=== PATIENT | female | born 1985 | race Caucasian/White ===

== ENCOUNTER 2018-11-04 20:42 | Emergency (ER) | payer BC ==
[2018-11-04 21:39] LABS: Urine Bacteria <20 /HPF (<20); Urine Culture Reflex Order NOT NEEDED; Urine Mucus 2+ /HPF (NONE SEEN)
[2018-11-04 21:40] LABS: Urine Blood 2+ (NEG); Urine Glucose NEGATIVE (NEG); Urine Protein 2+ (NEG)
[2018-11-04] MEDS ORDERED: NA CHLORIDE 0.9% 1,000 ML ONE (21:41)
[2018-11-04] MEDS ORDERED: KETOROLAC 30 MG/ML INJ ONE (21:41)
[2018-11-04 21:49] LABS: Basophils % 0.5 % (0-1.3); Eosinophils % 0.4 % (0-4.4)
[2018-11-04] MEDS ORDERED: ONDANSETRON 4 MG/2 ML VIAL ONE (21:52)
[2018-11-04 21:59] LABS: Absolute Lymphocytes (CBC) 1.1 K/uL (0.7-4.9); Absolute Monocytes 0.7 K/uL (0.1-1.3); Absolute Neutrophil 10.3 K/uL (1.8-8.0); Hematocrit 40.3 % (36.0-45.0); Lymphocytes % 8.8 % (15.3-44.8); MPV 7.2 fL (7.6-11.3); Monocytes % 5.5 % (3.3-12.3); RBC Red Blood Cell Count 4.75 M/uL (3.86-4.86)
[2018-11-04 22:02] LABS: Albumin 3.7 g/dL (3.4-5.0); Bilirubin Direct 0.1 mg/dL (0-0.2); Bilirubin Total 0.6 mg/dL (0.2-1.0); Potassium 3.7 mmol/L (3.5-5.1); Protein, Total 7.4 g/dL (6.4-8.2)
[2018-11-04] MEDS ORDERED: FENTANYL CITR 100 MCG/2 ML ONE (23:23)
--- NOTE | 2018-11-05 00:38 | EDPHYS ---
Physician Documentation [facility] Name: Corazon Gan Age: 32 yrs Sex: Female : 1985 Arrival Date: 11/04/2018 Time: 20:45 Bed 7 Private MD: Cesar Gomez E ED Physician Ridge Araujo HPI: 11/05 00:37 This 32 yrs old Female presents to ER via Ambulatory with complaints of Flank snw Pain, Fever. 00:37 The patient complains of pain in the right mid back. The pain does not radiate. Onset: snw The symptoms/episode began/occurred suddenly, 2 day(s) ago, and became persistent. Modifying factors: The symptoms are alleviated by nothing. Associated signs and symptoms: Pertinent positives: dysuria, nausea, chills. Severity of pain: At its worst the pain was moderate severe. The patient has experienced similar episodes in the past, a few times. The patient has not recently seen a physician. 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 - Social history:: Smoking status: Patient uses tobacco products, smokes one-half pack cigarettes per day. - Ebola Screening: : No symptoms or risks identified at this time. ROS: 11/05 00:38 Eyes: Negative for injury, pain, redness, and discharge, ENT: Negative for injury, snw pain, and discharge, Neck: Negative for injury, pain, and swelling, Cardiovascular: Negative for chest pain, palpitations, and edema, Respiratory: Negative for shortness of breath, cough, wheezing, and pleuritic chest pain, Abdomen/GI: Negative for abdominal pain, nausea, vomiting, diarrhea, and constipation. MS/Extremity: Negative for injury and deformity, Skin: Negative for injury, rash, and discoloration, Neuro: Negative for headache, weakness, numbness, tingling, and seizure. Constitutional: Positive for body aches, fatigue, fever, malaise. Back: Positive for flank pain, on the right. : Positive for urinary symptoms, burning with urination. Exam: 00:39 Head/Face: Normocephalic, atraumatic. Eyes: Pupils equal round and reactive to light, snw extra-ocular motions intact. Lids and lashes normal. Conjunctiva and sclera are non-icteric and not injected. Cornea within normal limits. Periorbital areas with no swelling, redness, or edema. ENT: Nares patent. No nasal discharge, no septal abnormalities noted. Tympanic membranes are normal and external auditory canals are clear. Oropharynx with no redness, swelling, or masses, exudates, or evidence of obstruction, uvula midline. Mucous membranes moist. Neck: Trachea midline, no thyromegaly or masses palpated, and no cervical lymphadenopathy. Supple, full range of motion without nuchal rigidity, or vertebral point tenderness. No Meningismus. Chest/axilla: Normal chest wall appearance and motion. Nontender with no deformity. No lesions are appreciated. Cardiovascular: Regular rate and rhythm with a normal S1 and S2. No gallops, murmurs, or rubs. Normal PMI, no JVD. No pulse deficits. Respiratory: Lungs have equal breath sounds bilaterally, clear to auscultation and percussion. No rales, rhonchi or wheezes noted. No increased work of breathing, no retractions or nasal flaring. 00:39 Back: No spinal tenderness. No costovertebral tenderness. Full range of motion. Skin: Warm, dry with normal turgor. Normal color with no rashes, no lesions, and no evidence of cellulitis. MS/ Extremity: Pulses equal, no cyanosis. Neurovascular intact. Full, normal range of motion. Neuro: Awake and alert, GCS 15, oriented to person, place, time, and situation. Cranial nerves II-XII grossly intact. Motor strength 5/5 in all extremities. Sensory grossly intact. Cerebellar exam normal. Normal gait. 00:39 Constitutional: The patient appears alert, awake, obese, uncomfortable. 00:39 Abdomen/GI: Inspection: obese Bowel sounds: normal, Palpation: mild abdominal tenderness, moderate abdominal tenderness, in the suprapubic area, right lower quadrant and left lower quadrant. Vital Signs: 11/04 21:06 BP 141 / 89; Pulse 92; Resp 18; Temp 99.3(O); Pulse Ox 96% on R/A; Weight 136.08 kg; lp1 Height 5 ft. 8 in. (172.72 cm); Pain 8/10; 22:12 BP 116 / 69; Pulse 84; Resp 18; Pulse Ox 95% on R/A; aa1 23:15 BP 117 / 64; Pulse 84; Resp 18; Pulse Ox 95% on R/A; Pain 7/10; aa1 11/05 00:36 BP 119 / 84; Pulse 86; Resp 18; Temp 99.0; Pulse Ox 95% on R/A; Pain 5/10; aa1 11/04 21:06 Body Mass Index 45.61 (136.08 kg, 172.72 cm) lp1 MDM: 11/04 21:18 Patient medically screened. snw 11/05 00:36 Data reviewed: vital signs, nurses notes. Data interpreted: Pulse oximetry: on room air snw is 95 %. Interpretation: acceptable. Counseling: I had a detailed discussion with the patient and/or guardian regarding: the historical points, exam findings, and any diagnostic results supporting the discharge/admit diagnosis, lab results, radiology results, the need for outpatient follow up, to return to the emergency department if symptoms worsen or persist or if there are any questions or concerns that arise at home. Special discussion: I discussed with the patient the need to follow-up with the PCP/specialist for the noted incidental finding on X-ray/CT scanning. Based on the history and exam findings, there is no indication for further emergent testing or inpatient evaluation. I discussed with the patient/guardian the need to see the primary care provider for further evaluation of the symptoms. 00:40 Response to treatment: the patient's symptoms have mildly improved after treatment, the snw patient's symptoms have markedly improved after treatment, and as a result, I will discharge patient, administer antibiotics Macrobid, administer pain medication. 11/04 21:15 Order name: Basic Metabolic Panel; Complete Time: 22:07 snw 11/04 21:15 Order name: CBC with Diff; Complete Time: 22:07 w 11/04 21:15 Order name: Hepatic Function; Complete Time: 22:07 w 11/04 21:15 Order name: Urine Culture 11/04 21:15 Order name: Urine Microscopic Only; Complete Time: 21:43 w 11/04 21:15 Order name: Blood Culture Adult (2) w 11/04 21:20 Order name: Urine Dipstick--Ancillary (enter results); Complete Time: :43 11/04 21:20 Order name: Urine --Ancillary (enter results); Complete Time: :43 11/04 23:08 Order name: CT Stone Protocol w 11/04 21:15 Order name: IV Saline Lock; Complete Time: :41 w 11/04 21:15 Order name: Labs collected and sent; Complete Time: :41 11/04 21:15 Order name: Urine Test (obtain specimen); Complete Time: 21:24 w 11/04 21:15 Order name: Urine Dipstick-Ancillary (obtain specimen); Complete Time: 21:24 snw Administered Medications: 11/04 21:43 Drug: NS 0.9% 1000 ml Route: IV; Rate: 1 bolus; Site: left antecubital; aa1 21:43 Drug: TORadol 30 mg Route: IVP; Site: left antecubital; aa1 22:45 Follow up: Response: No adverse reaction; Pain is unchanged, physician notified aa1 21:45 Drug: Zofran 4 mg Route: IVP; Site: left antecubital; aa1 22:45 Follow up: Response: No adverse reaction; Nausea is decreased aa1 23:15 Drug: fentaNYL (PF) 25 mcg Route: IVP; Site: left antecubital; aa11/05 00:34 Follow up: Response: No adverse reaction; Pain is decreased aa1 00:31 Drug: Rocephin 1 grams Route: IV; Rate: calculated rate; Site: left antecubital; aa1 00:40 Follow up: IV Status: Completed infusion aa1 00:31 Drug: Motrin 400 mg Route: PO; aa1 00:40 Follow up: Response: Medication administered at discharge. aa1 Disposition: : Co-signature as Attending Physician, Ridge Araujo MD. rn Disposition: 11/05/18 00:35 Discharged to Home. Impression: Urinary tract infection, site not specified. - Condition is Stable. - Discharge Instructions: Urinary Tract Infection, Adult, Rehydration, Adult. - Prescriptions for Macrobid 100 mg Oral Capsule - take 1 capsule by ORAL route every 12 hours for 10 days; 20 capsule. Diclofenac Sodium 75 mg Oral Tablet Sustained Release - take 1 tablet by ORAL route 2 times per day; 30 tablet. - Work release form, Medication Reconciliation Form, Thank You Letter, Antibiotic Education, Prescription Opioid Use form. - Follow up: Cesar Gomez MD; When: 2 - 3 days; Reason: Recheck today's complaints, Continuance of care, Re-evaluation by your physician. Follow up: Emergency Department; When: As needed; Reason: Worsening of condition. - Notes: Adrenal adenoma needs further evaluation. Signatures: Dispatcher [employer] EDMS Juliette Maurer RN RN aa1 Carole Santiago, CINEMA OR THEATRE MANAGER-C CINEMA OR THEATRE MANAGER-Csnw Ridge Araujo MD MD rn Pena, Laura, RN RN lp1 Corrections: (The following items were deleted from the chart) 00:47 00:35 11/05/2018 00:35 Discharged to Home. Impression: Urinary tract infection, site aa1 not specified. Condition is Stable. Forms are Medication Reconciliation Form, Thank You Letter, Antibiotic Education, Prescription Opioid Use. Follow up: Cesar Gomez; When: 2 - 3 days; Reason: Recheck today's complaints, Continuance of care, Re-evaluation by your physician. Follow up: Emergency Department; When: As needed; Reason: Worsening of condition. snw
--- NOTE | 2018-11-05 00:38 | ER ---
Nurse's Notes [facility] Name: Corazon Gan Age: 32 yrs Sex: Female : 1985 Arrival Date: 11/04/2018 Time: 20:45 Bed 7 Private MD: Cesar Gomez E Diagnosis: Urinary tract infection, site not specified Presentation: 11/04 21:02 Presenting complaint: Patient states: Fever, pain to right flank, pain when urinating lp1 that began yesterday, worsening; Fever of 102.5 an hour ago; Hx of kidney infection, symptoms similar. Transition of care: patient was not received from another setting of care. Onset of symptoms was November 04, 2018. Risk Assessment: Do you want to hurt yourself or someone else? Patient reports no desire to harm self or others. Initial Sepsis Screen: Does the patient meet any 2 criteria? No. Patient's initial sepsis screen is negative. Does the patient have a suspected source of infection? No. Patient's initial sepsis screen is negative. Care prior to arrival: None. 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 - Social history:: Smoking status: Patient uses tobacco products, smokes one-half pack cigarettes per day. - Ebola Screening: : No symptoms or risks identified at this time. Screenin:30 Abuse screen: Denies threats or abuse. Denies injuries from another. Nutritional aa1 screening: No deficits noted. Tuberculosis screening: No symptoms or risk factors identified. Fall Risk None identified. Assessment: 21:30 General: Appears in no apparent distress. uncomfortable, Behavior is calm, cooperative, aa1 appropriate for age. Pain: Complains of pain in posterior aspect of right lateral abdomen and anterior aspect of right lateral abdomen Pain currently is 8 out of 10 on a pain scale. Is continuous. Neuro: Level of Consciousness is awake, alert, obeys commands, Oriented to person, place, time, situation, Moves all extremities. Full function Gait is steady, Speech is normal. Respiratory: Airway is patent Respiratory effort is even, unlabored, Respiratory pattern is regular, symmetrical. GI: Abdomen is obese, Abd is soft X 4 quads Reports nausea, vomiting. : Reports pain in right flank(s). EENT: No signs and/or symptoms were reported regarding the EENT system. Derm: Skin is intact, is healthy with good turgor, Skin is pink, warm \T\ dry. Musculoskeletal: Circulation, motion, and sensation intact. Capillary refill < 3 seconds, Range of motion: intact in all extremities. 22:14 Reassessment: Patient appears in no apparent distress at this time. Patient and/or aa1 family updated on plan of care and expected duration. Pain level reassessed. Patient is alert, oriented x 3, equal unlabored respirations, skin warm/dry/pink. Awaiting provider reassessment. 23:15 Reassessment: Patient appears in no apparent distress at this time. Patient and/or aa1 family updated on plan of care and expected duration. Pain level reassessed. Patient is alert, oriented x 3, equal unlabored respirations, skin warm/dry/pink. Pt remedicated for pain and taken to CT at this time. 11/05 00:36 Reassessment: Patient appears in no apparent distress at this time. Patient is alert, aa1 oriented x 3, equal unlabored respirations, skin warm/dry/pink. Discussed d/c \T\ f/u instructions with pt \T\ family; denies questions or concerns at this time Patient states feeling better. Vital Signs: 11/04 21:06 BP 141 / 89; Pulse 92; Resp 18; Temp 99.3(O); Pulse Ox 96% on R/A; Weight 136.08 kg; lp1 Height 5 ft. 8 in. (172.72 cm); Pain 8/10; 22:12 BP 116 / 69; Pulse 84; Resp 18; Pulse Ox 95% on R/A; aa1 23:15 BP 117 / 64; Pulse 84; Resp 18; Pulse Ox 95% on R/A; Pain 7/10; aa1 11/05 00:36 BP 119 / 84; Pulse 86; Resp 18; Temp 99.0; Pulse Ox 95% on R/A; Pain 5/10; aa1 11/04 21:06 Body Mass Index 45.61 (136.08 kg, 172.72 cm) lp1 ED Course: 11/04 20:45 Patient arrived in ED. es 20:45 Cesar Gomez MD is Private Physician. es 21:03 Triage completed. lp1 21:05 Arm band placed on left wrist. lp1 21:13 Carole Santiago F[facility]-C [facility]. snw 21:13 Ridge Araujo MD is Attending Physician. snw 21:24 Juliette Maurer RN is Primary Nurse. aa1 21:30 Patient has correct armband on for positive identification. Bed in low position. Call aa1 light in reach. Pulse ox on. NIBP on. Warm blanket given. 21:35 Inserted saline lock: 20 gauge in left antecubital area, using aseptic technique. Blood mw2 collected. 23:[address] via wheelchair. kw1 23:26 CT completed. Patient tolerated procedure well. Patient moved back from [place]. kw1 23:43 CT Stone Protocol In Process Unspecified. EDMS 11/05 00:34 Cesar Gomez MD is Referral Physician. snw 00:45 No provider procedures requiring assistance completed. IV discontinued, intact, aa1 bleeding controlled, No redness/swelling at site. Pressure dressing applied. Administered Medications: 11/04 21:43 Drug: NS 0.9% 1000 ml Route: IV; Rate: 1 bolus; Site: left antecubital; aa1 21:43 Drug: TORadol 30 mg Route: IVP; Site: left antecubital; aa1 22:45 Follow up: Response: No adverse reaction; Pain is unchanged, physician notified aa1 21:45 Drug: Zofran 4 mg Route: IVP; Site: left antecubital; aa1 22:45 Follow up: Response: No adverse reaction; Nausea is decreased aa1 23:15 Drug: fentaNYL (PF) 25 mcg Route: IVP; Site: left antecubital; aa1 11/05 00:34 Follow up: Response: No adverse reaction; Pain is decreased aa 00:31 Drug: Rocephin 1 grams Route: IV; Rate: calculated rate; Site: left antecubital; aa 00:40 Follow up: IV Status: Completed infusion aa 00:31 Drug: Motrin 400 mg Route: PO; aa 00:40 Follow up: Response: Medication administered at discharge. aa1 Outcome: 00:35 Discharge ordered by . snw 00:45 Discharged to home ambulatory, with family. aa1 00:45 Condition: good 00:45 Discharge instructions given to patient, family, Instructed on discharge instructions, follow up and referral plans. medication usage, Demonstrated understanding of instructions, follow-up care, medications, Prescriptions given X 2. 00:47 Patient left the ED. aa1 Addendum: 11/08/2018 10:09 Addendum: Culture Results: Positive urine culture. No further action required. Bacteria h b sensitive to prescribed antibiotic. Signatures: Dispatcher [employer] Juliette Garcia RN RN aa1 Carole Santiago, SECRETARY RECEPTIONIST-C SECRETARY RECEPTIONIST-Rowanw Olga Lovell Laura, RN RN lp1 Vilma Kahn RN RN Enedelia Loera1 Gaurav Hurtado 2
[2018-11-05] MEDS ORDERED: CEFTRIAXONE/SWI 1gm 1 GM/10 ML SYR ONE (00:41)
[2018-11-05] MEDS ORDERED: IBUPROFEN 200 MG TAB PO ONE (00:41)
[2018-11-05 02:32] VITALS: O2SAT 95
[2018-11-05 02:35] VITALS: BP 119/84; TEMP 99
--- NOTE | 2018-11-05 18:07 | RAD REPORT ---
EXAM DESCRIPTION: CT - Stone Protocol CLINICAL HISTORY: The patient is 32 years old and is Female; FLANK PAIN COMPARISON: None. TECHNIQUE: Axial computed tomography images of the abdomen and pelvis without intravenous contrast. Sagittal and coronal reformatted images were created and reviewed. This CT exam was performed using one or more o f the following dose reduction techniques: Automated exposure control, adjustment of the mA and/or kV according to patient size, and/or use of iterative reconstruction technique. FINDINGS: LUNG BASES: Lung bases are clear. ABDOMEN: LIVER: Unremarkable. GALLBLADDER AND BILE DUCTS: Prior cholecystectomy. No ductal dilation. PANCREAS: Unremarkable. No ductal dilation. SPLEEN: Unremarkable. No splenomegaly. ADRENALS: Well-demarcated 3.6 x 3.3 cm hypodense left adrenal nodule is present with punctate calcifi cation superiorly. KIDNEYS AND URETERS: 5 mm cortical calcification in the right kidney laterally. No hydronephrosis. STOMACH AND BOWEL: Unremarkable. No obstruction. No mucosal thickening. PELVIS: APPENDIX: The appendix is surgically absent. BLADDER: Unremarkable. No stones. REPRODUCTIVE: Anteverted heterogenous uterus with suggestion of left adnexal cystic changes measuring up to 4.0 cm. Similar appearing finding is seen in the right adnexa measuring 3.0 x 2.9 cm. Small am ount of gas in the vaginal canal. ABDOMEN and PELVIS: INTRAPERITONEAL SPACE: Unremarkable. No free air. No significant fluid collection. BONE/JOINTS: No acute fracture. No dislocation. SOFT TISSUES: Unremarkable. VASCULATURE: Unremarkable. No abdominal aortic aneurysm. LYMPH NODES: Unremarkable. No enlarged lymph nodes. IMPRESSION: 1. No acute abdominal or pelvic abnormality. 2. Hypodense well-demarcated 3.6 cm left adrenal nodule, likely adenoma. Dedicated CT or MR abdomen w ith and without contrast. Adrenal mass protocol may be of use for further characterization. 3.5 mm right renal cortical calcification. No hydronephrosis. 4. Prior cholecystectomy and appendectomy. 4. Heterogenous anteverted uterus with bilateral adnexal cystic changes. Recommend follow-up pelvic U S in 6-12 weeks Reference: J Am Mary Radiol 2013;10:[id number]. Electronically signed by Lenny Okeefe DO 11/04/2018 11:52 PM SERVICE WRITER Due to temporary technical issues with the PACS/Fluency reporting system, reports are being signed by the in house radiologist as a courtesy to ensure prompt reporting. The interpreting radiologist is f ully responsible for the content of the report.
== END 2018-11-05 00:47 | disposition home or self-care (01) ==
LOC: ER 20:42
DX: N39.0 Urinary tract infection, site not specified (principal); J45.909 Unspecified asthma, uncomplicated; E28.2 Polycystic ovarian syndrome; Z88.5 Allergy status to narcotic agent; Z88.8 Allergy status to other drugs, medicaments and biological substances
CPT/HCPCS: 36415; 74176; 76377; 80048; 80076; 81003; 81015; 81025; 85025; 87040; 87077; 87086; 87088; 87186; 96374; 96375; 99284; J0696; J2405; J3010; J7030